=== PATIENT | male | born 1945 | race Caucasian/White ===

== ENCOUNTER 2019-06-11 09:18 | Day surgery (SDC) | payer MEDICARE, BC ==
[2019-06-11] VITALS (7 sets, daily range): BP systolic 148–165; BP diastolic 72–78; PULSE 57–66; TEMP 97.6
[~2019-06-11] VITALS: Ht 180.3 cm; Wt 90.5 kg
[~2019-06-11 09:18] MED LIST: ADVIL200 MG PO; ASPIRIN E.C. 8181 MG PO; EPA FISH OIL1000 MG PO; FLOMAX 0.40.4 MG/CAP PO; GLUCOSAMIN 500 PO; METOPROLOL25 MG PO; MIRALAX17 GM/DOSE PO; RESTORIL30 MG PO; SERTRALINE50 MG PO; SIMVASTATIN40 MG PO
[2019-06-11] MEDS ORDERED: FOSAMAX 70MG TA70 MG PO (10:27)
[2019-06-11] MEDS ORDERED: CIALIS10 MG PO (10:32)
[2019-06-11] MEDS ORDERED: COUMADIN 5MG5 MG/TAB PO (10:33)
[2019-06-11] MEDS ORDERED: HYGROTON 2525 MG/TAB PO (10:34)
[2019-06-11] MEDS ORDERED: VITAMIN D 1001000 IU PO (10:36)
[2019-06-11] MEDS ORDERED: ALLEGRA 180MG180 MG PO (10:37)
[2019-06-11] MEDS ORDERED: HCTZ12.5TAB PO (10:38)
[2019-06-11] MEDS ORDERED: FLONASEALLERGY NS (10:38)
[2019-06-11] MEDS ORDERED: ZESTRIL2.5 MG PO (10:38)
[2019-06-11] MEDS ORDERED: PROTONIX 40MG T40 MG PO (10:39)
[2019-06-11] MEDS ORDERED: LYRICA 75MG CAP75 MG PO (10:39)
[2019-06-11] MEDS ORDERED: K-DUR 10 MEQ T10 MEQ PO (10:40)
[2019-06-11] MEDS ORDERED: TESSALON P100 MG/CAP PO (11:02)
--- NOTE | 2019-06-11 12:30 | NUR ---
Pt returned via cart to [facility]. A&O. VSS-see flowsheet. , Hanh brought to room to visit. Pt requested jemigdaliay toast and sprite. Side rails up, call light in reach. Brief with fluff gauze in place. Denies pain or nausea.
--- NOTE | 2019-06-11 15:40 | NUR ---
VS remain stable-see flowsheet. Tolerated toast and sprite. Up to void without difficulty. Fluff gauze from OR saturated with blood and changed. Pt denied pain, reporting some mild discomfort at rectum. Discharge teaching completed, pt and verbalized understanding. Taken via wheelchair to private vehicle for dc home with driving. Sent with mesh underwear and pads, dc packet and f/u appt card.
== END 2019-06-11 15:40 | disposition home or self-care (01) ==
LOC: SDCO 09:18
DX: K60.5 Anorectal fistula (principal); I25.10 Atherosclerotic heart disease of native coronary artery without angina pectoris; G25.81 Restless legs syndrome; I10 Essential (primary) hypertension; N40.0 Benign prostatic hyperplasia without lower urinary tract symptoms; K21.9 Gastro-esophageal reflux disease without esophagitis; Z79.01 Long term (current) use of anticoagulants; Z79.82 Long term (current) use of aspirin; Z79.51 Long term (current) use of inhaled steroids; Z79.899 Other long term (current) drug therapy; Z95.0 Presence of cardiac pacemaker; Z90.89 Acquired absence of other organs
CPT/HCPCS: J0690; J1100; J1885; J2405; J2704; J3010; J7120